=== PATIENT | female | born 1950 | race Caucasian/White ===

== ENCOUNTER → 2018-02-17 | Outpatient (CLI) | payer MEDICARE, OTHER ==
[~2018-02-17] MED LIST: AMBIEN 5 MG TABL5 M1 PO; AMITRIPTYLINE H10 M3 PO; ESTRADIOL 1 MG T1 M1 PO; MEDROLDOSEPACK PO; NEURONTIN 300300 M1 PO; PERCOCET PO; PROTONIX40 M1 PO; PROZAC20 MG PO; SENNA8.6 MG PO; TRAMADOL 50 MG50 MG PO; TRIAMTERENE-HC1 EAC2 PO; TUDORZA PRESS400 MCG IH
== END ==
LOC: M.LAB 01:02
DX: N28.9 Disorder of kidney and ureter, unspecified (principal)

== ENCOUNTER → 2020-01-26 | Outpatient (CLI) | payer MEDICARE, OTHER ==
[~2020-01-26] MED LIST changes: +CLIMARA1 EAC3 TRANSDERM; +DRIZALMA SPRINK30 MG PO; +DULOXETINE HCL60 MG PO; +HYDROCODON-ACE1 EAC7 PO; +INTERMEZZO3.5 MG PO; +INTERMEZZO3.5 MG SUBLING; +LIPITOR 20 MG T20 M1 PO; +LORCET 5-325 M1 EACH PO; +NEURONTIN300 MG PO; +PROTONIX40 M2 PO; +PROTONIX40 M4 PO; +TRAZODONE HCL50 MG PO; +ULTRAM50 MG PO
--- NOTE | 2020-01-27 15:45 | PAINCON ---
[address] [address] PAIN MANAGEMENT CONSULTATION Name: MALATHIJEFFVIRGINIA LEDEZMA Room: [facility]#: [id number] Admission: 01/26/20 Attend Phys: Jesus Lewis MD Discharge: Date of : 50 Report #: [id number] THIS REPORT FOR: //name// cc: Dalton Tyler MD, Anthony MD ~ CC: Dalton Lewis DATE OF SERVICE: 01/26/2020 PRIMARY CARE PHYSICIAN: Dalton Tyler MD CHIEF COMPLAINT: "I fell and hurt my back." HISTORY: The patient is a 69-year-old female who has been referred to the pain clinic. The patient has a history of back problems. She has had back surgery. She states that things were going relatively well. She fell on 11/05/2019. As a result of the fall, she suffered a compression fracture in her thoracic area. At the T11 area, a compression fracture was found. She underwent treatment. She underwent a kyphoplasty. She states that the pain in that area improved. She continues to have pain in the lower portion of her back. She has had surgery in the lumbar area. This is the area where her pain is problematic. It is across the L4-L5 mid back area and radiates off into the flanks bilaterally. Pain is worse when she is sitting and bending. Pain improves when she is lying down or standing. She finds that heat has been helpful. Notes that there is pain in the right leg and left leg as well. She is unable to take nonsteroidal anti-inflammatory medications because of her kidney function. She has used tramadol and hydrocodone. She rates her pain today as a 7/10 in the low back area. She has tried a Medrol Dosepak. She states that the medications caused her to throw up and she felt sick. Feels that use of pain medications, heat and cold in conjunction with rest have been the best in helping control the pain. ALLERGIES: No known drug allergies. MEDICATIONS: Include Medrol Dosepak, hydrocodone 10/325 one p.o. q.4-6 hours, tramadol 50 mg, gabapentin 300 mg b.i.d. PAST MEDICAL HISTORY: Gastroesophageal reflux, hypercholesterolemia, depression, fibromyalgia, hypertension, chronic obstructive pulmonary disease, stage 3 kidney disease, 01/2016. PAST SURGICAL HISTORY: Instrumentation at L4-L5 with rods and screws, status post failed back syndrome. Appendectomy in 1976, tonsillectomy in 1980, partial hysterectomy in 1986, hospitalized with pyelonephritis in 1998, removal of left ovary in 1990, bladder tie up, great toe surgery, metal plate in 2004, right great toe plate in 2007, cervical spine C3 through metal plate in 2009, L4-L5 [place] [address] PAIN MANAGEMENT CONSULTATION Name: JEFF SERVIN Room: [facility]#: [id number] Admission: 01/26/20 Attend Phys: Jesus Lewis MD Discharge: Date of : 50 Report #: [id number] exploration tumor in 2011, left L5 nerve removed, rods and screws placed, left hand surgery in 2014, hospitalized in 2016 for dehydration and pyelonephritis, right trigger finger rupture tendon in 2016, nonmalignant lipoma removed in 2017. SOCIAL HISTORY: She is retired. REVIEW OF SYSTEMS: As per HPI. LABORATORY DATA: MRI lumbar spine on 12/03/2019. Indication Low back pain, history of prior back surgery and fusion. Disk levels T12-L1 unremarkable, L2-L1 unremarkable, L2-L3 mild bulge without central spinal canal stenosis. Bilateral neural foraminal narrowing. At L3-L4 post-fusion and laminectomy. No central canal or foraminal stenosis. L4-L5, broad-based disk bulge and small central protrusion. Mild foraminal narrowing, right greater than left. No central canal stenosis. Posterior instrumentation and fusion. L5-S1 no spinal stenosis or disk protrusion. IMPRESSION: 1. Acute T11 compression fracture with marrow edema. 2. Status post lumbar fusion L3-L4 and L4-L5. 3. L4-L5 disk bulge with spondylolisthesis. PAIN CLINIC ASSESSMENT AND PQRS: 1. The patient is not being treated for rheumatoid arthritis. She does have some osteoarthritic changes in her low back area. 2. Height 5 feet 4 inches, weight 126 pounds, BMI is 26. 3. Vital signs: Blood pressure 124/72, heart rate 76, respiratory rate 16, room air saturation 95%, temperature 98.7. 4. Pain intensity, 7/10. 5. Fall history: The patient did fall on 11/05/2019. 6. Blood thinner. The patient is not on a blood thinning medication. 7. Hypertension. The patient was treated in the past for hypertension. 8. Opioids greater than 6 weeks. The patient receives medication from her primary physician. 9. Risk assessment tool, low for opioid use. 10. Functional assessment tool, reviewed. 11. Recreational drug use: The patient denies. 12. Tobacco: The patient denies use of tobacco at this juncture. 13. Alcohol. The patient denies significant use of alcohol. PHYSICAL EXAMINATION: GENERAL: The patient is a well-developed, well-nourished white female. Appears her stated age. She is alert and oriented x 3. She is wearing a facial covering. NECK: [place] [address] PAIN MANAGEMENT CONSULTATION Name: MALATHIJEFFVIRGINIA FARIAE Room: [facility]#: [id number] Admission: 01/26/20 Attend Phys: Jesus Lewis MD Discharge: Date of : 50 Report #: [id number] EXTREMITIES: Upper extremity muscle strength judged to be 5-/5 for the major muscle groups in the upper extremity. HEART: Regular. ABDOMEN: Nontender. MUSCULOSKELETAL: Lower extremity, the patient has a well-healed scar from the mid portion of her back down to the sacrum. Complains of pain in the left and right L4 paraspinous muscle areas. Has noted some pain that radiates down into her leg on the left and right side on occasion. The patient is lying on bed. Notes her pain is worse when she is sitting. The patient stands through during most of the exam. She finds that the pain is less while standing. IMPRESSION: 1. Fall on 11/05/2019 with compression fracture at T11, now with continued pain in the low back area. 2. Gastroesophageal reflux. 3. Hypercholesterolemia. 4. Depression. 5. Fibromyalgia 6. Hypertension. 7. Chronic obstructive pulmonary disease. 8. Stage 3 kidney disease, 01/2016. RECOMMENDATIONS: We discussed treatment options with the patient and her . At this juncture, we will consider an injection at the L4-L5 area. The patient has had surgery in the back area a number of times. At this juncture, we will proceed with a transforaminal approach. Risks and benefits of an injection were discussed. They include but are not limited to infection, worsening pain, no improvement in pain, nerve damage, bleeding, spinal headache and the patient elects to proceed. The patient will return to the Pain Clinic, at which time she will undergo treatment for her pain. We will also evaluate the patient's need for hydrocodone, tramadol and with her other medications will be helpful in helping control of her pain. We would like to thank you for letting us participate in her care. We hope she continues to improve. <ELECTRONICALLY SIGNED> By: Jesus Lewis MD 01/27/20 [id number]. Luther Lewis MD /[facility]
== END ==
LOC: M.PC 09:58
PROVIDERS: ATTEND Anesthesiology Pain Medicine
DX: M43.16 Spondylolisthesis, lumbar region (principal); M51.16 Intervertebral disc disorders with radiculopathy, lumbar region; M43.26 Fusion of spine, lumbar region; M48.54XA Collapsed vertebra, not elsewhere classified, thoracic region, initial encounter for fracture

== ENCOUNTER → 2020-01-28 | Outpatient (CLI) | payer MEDICARE, OTHER ==
--- NOTE | ~2020-01-28 | PAINCON ---
[address] [address] PAIN MANAGEMENT CONSULTATION Name: MALATHIJEFFVIRGINIA LEDEZMA Room: [facility]#: [id number] Admission: 01/28/20 Attend Phys: Jesus Lewis MD Discharge: Date of : 50 Report #: [id number] THIS REPORT FOR: //name// cc: Dalton Tyler MD, Anthony MD ~ CC: Dalton Lewis DATE OF SERVICE: 01/28/2020 CHIEF COMPLAINT: Back pain and leg pain. HISTORY: The patient is a 69-year-old female who has been seen in the Pain Clinic because of increased low back pain. She recently injured her back. She fell. This was on 11/05/2019. As a result, she suffered a T11 compression fracture. She did undergo a kyphoplasty. Her pain continues to improve. She has a second pain, which is in the low back area. It is in the area of the lumbar and low back area. She notes pain in the L4-L5 area across her back that radiates into her flanks. Notes that the pain is worse with sitting. It improves somewhat with standing. Notes that pain radiates down into her right leg. She has some discomfort in the left leg as well. Left leg is more problematic than the right leg. She has returned today for an epidural injection. The patient has had instrumentation in the low back area. ALLERGIES: No known drug allergies. CURRENT MEDICATIONS: Hydrocodone 10 mg q. 4 hours p.r.n., tramadol 50 mg, gabapentin 300 mg b.i.d. PAIN CLINIC ASSESSMENT/PQRS: 1. The patient does have some arthritic changes in her low back area. 2. Height 5 feet 4 inches, weight 127 pounds, BMI is 21. 3. Vital signs: Blood pressure is 118/60, heart rate 69, respiratory rate 16, room air saturation 95%, temperature 97.4. 4. Pain intensity is 7/10. 5. Fall history: The patient has not fallen since 11/05/2019. 6. Blood thinner. The patient is not on a blood thinning medication. 7. Hypertension. The patient was treated in the past for hypertension. 8. Opioids greater than 6 weeks. The patient receives medication from her primary physician. 9. Risk assessment tool, low for opioid use. 10. Functional assessment tool reviewed. 11. Recreational drug use: The patient denies. 12. Tobacco: The patient denies use of tobacco. 13. Alcohol. The patient denies frequent use [place] [address] PAIN MANAGEMENT CONSULTATION Name: MALATHIJEFF Room: [facility]#: [id number] Admission: 01/28/20 Attend Phys: Jesus Lewis MD Discharge: Date of : 50 Report #: [id number] PHYSICAL EXAMINATION: GENERAL: The patient is a well-developed, well-nourished white female. Appears her stated age. She is alert and oriented x 3. Her affect is appropriate. Speech is fluent. The patient is wearing a facial covering. HEART: Regular rate. LUNGS: Clear to auscultation. ABDOMEN: Nontender. MUSCULOSKELETAL: The patient has some low back pain across the lower portion of her back in the L4-L5 dermatomal distribution. The patient has a well-healed scar from the L3 through the L5 area down to the sacrum. The patient has pain in the left and right paraspinous areas. Also, notes pain that radiates down her right and left leg. IMPRESSION: 1. Fall in 11/05/2019 with compression fracture at T11, improved after kyphoplasty. 2. Low back pain with pain radiating down the L4-L5 dermatomal distribution of her back. 3. Gastroesophageal reflux. 4. Hypercholesterolemia. 5. Depression. 6. Fibromyalgia. 7. Hypertension. 8. Chronic obstructive pulmonary disease. 9. Stage 3 kidney disease in 01/2016. RECOMMENDATIONS: We discussed treatment options with the patient. Risks and benefits of an epidural steroid injection using the transforaminal approach on the left and the right side because of her pain was discussed. Possible complications of the procedure, which could include infection, worsening of pain, no improvement in pain, nerve damage, bleeding, and the patient elects to proceed. We explained that COVID-19 is pandemic. Should the patient become infected, she may have a more difficult time recovering from the infection. She elects to proceed. PROCEDURE NOTE: The patient was taken to the procedure area. She was then assisted in getting on the examination table. Her back was sterilely prepped with a Betadine solution. A 0.25% bupivacaine was infiltrated. A 17-gauge Tuohy with loss of resistance technique was used to gain access to the epidural space. There was no CSF, heme or paresthesia. A total of 80 mg Depo-Medrol was injected on the right side. A total of 80 mg triamcinolone was injected on the left side. The patient tolerated the procedure well. A total of 25 seconds fluoroscopy time was used. The patient remained in the Pain Clinic for appropriate amount of time. She will follow up in the future as needed. The procedure was done using 22-gauge spinal needles using a transforaminal approach [place] [address] PAIN MANAGEMENT CONSULTATION Name: MALATHIJEFF BRISA Room: [facility].#: [id number] Admission: 01/28/20 Attend Phys: Jesus Lewis MD Discharge: Date of : 50 Report #: [id number] at the left side at L4-L5 and a second injection on the right side using a transforaminal approach. We would like to thank you for letting us participate in her care. We hope she continues to improve. By: [id number]. Luther Lewis MD /nt
== END | disposition home or self-care (01) ==
LOC: M.PC 11:03
PROVIDERS: ATTEND Anesthesiology Pain Medicine
DX: M54.5 Low back pain (principal); K21.9 Gastro-esophageal reflux disease without esophagitis; E78.00 Pure hypercholesterolemia, unspecified; F32.9 Major depressive disorder, single episode, unspecified; J44.9 Chronic obstructive pulmonary disease, unspecified; I12.9 Hypertensive chronic kidney disease with stage 1 through stage 4 chronic kidney disease, or unspecified chronic kidney disease; N18.30 Chronic kidney disease, stage 3 unspecified; M79.7 Fibromyalgia; Z79.899 Other long term (current) drug therapy; Z88.8 Allergy status to other drugs, medicaments and biological substances

== ENCOUNTER → 2020-04-07 | Outpatient (CLI) | payer MEDICARE, OTHER | END | disposition home or self-care (01) | LOC: M.PC 12:38 | PROVIDERS: ATTEND Anesthesiology Pain Medicine | DX: M54.16 Radiculopathy, lumbar region (principal); G89.29 Other chronic pain; I12.9 Hypertensive chronic kidney disease with stage 1 through stage 4 chronic kidney disease, or unspecified chronic kidney disease; N18.30 Chronic kidney disease, stage 3 unspecified; E78.00 Pure hypercholesterolemia, unspecified; K21.9 Gastro-esophageal reflux disease without esophagitis; J44.9 Chronic obstructive pulmonary disease, unspecified; M79.7 Fibromyalgia; F32.9 Major depressive disorder, single episode, unspecified; Z98.890 Other specified postprocedural states; Z79.899 Other long term (current) drug therapy ==

== ENCOUNTER → 2020-06-21 | Outpatient (CLI) | payer MEDICARE, OTHER ==
[~2020-06-21] MED LIST changes: +HYDROCODONE-AP1 EA11 PO
== END | disposition home or self-care (01) ==
LOC: M.PC 10:40
PROVIDERS: ATTEND Anesthesiology Pain Medicine
DX: M54.16 Radiculopathy, lumbar region (principal); G89.29 Other chronic pain; I12.9 Hypertensive chronic kidney disease with stage 1 through stage 4 chronic kidney disease, or unspecified chronic kidney disease; E78.00 Pure hypercholesterolemia, unspecified; J44.9 Chronic obstructive pulmonary disease, unspecified; F32.9 Major depressive disorder, single episode, unspecified; M79.7 Fibromyalgia; K21.9 Gastro-esophageal reflux disease without esophagitis; Z98.890 Other specified postprocedural states; Z79.899 Other long term (current) drug therapy; Z20.822 Contact with and (suspected) exposure to COVID-19

== ENCOUNTER → 2020-08-09 | Outpatient (CLI) | payer MEDICARE, OTHER ==
[~2020-08-09] MED LIST changes: +TRIAMTERENE/HCT1 CA1 PO
== END | disposition home or self-care (01) ==
LOC: M.PC 09:50
PROVIDERS: ATTEND Anesthesiology Pain Medicine
DX: M54.16 Radiculopathy, lumbar region (principal); G89.29 Other chronic pain; I12.9 Hypertensive chronic kidney disease with stage 1 through stage 4 chronic kidney disease, or unspecified chronic kidney disease; N18.30 Chronic kidney disease, stage 3 unspecified; E78.00 Pure hypercholesterolemia, unspecified; J44.9 Chronic obstructive pulmonary disease, unspecified; M79.7 Fibromyalgia; K21.9 Gastro-esophageal reflux disease without esophagitis; F32.9 Major depressive disorder, single episode, unspecified; Z98.890 Other specified postprocedural states; Z79.899 Other long term (current) drug therapy